=== PATIENT | female | born 1965 | race Caucasian/White ===

== ENCOUNTER 2018-01-15 06:10 | Day surgery (SDC) | payer OTHER ==
[2018-01-12 12:07] VITALS: BMI 23.6
[2018-01-15] MEDS ORDERED: EPINEPHrine 1:1,000 1 MG/1 ML - 30ML VIAL (INJECTION) ONE (07:11)
[2018-01-15] MEDS ORDERED: PROPOFOL 20 ML ONE ×3 (07:13→10:04)
[2018-01-15] MEDS ORDERED: SUCCINYLCHOLINE CHLORIDE 200 MG/10 ML VIAL ONE (07:13)
[2018-01-15] MEDS ORDERED: ceFAZolin SODIUM 1 GM VIAL ONE (07:15)
[2018-01-15] MEDS ORDERED: LIDOCAINE HCL/PF 2% SDV 5ML VIAL ONE (07:15)
[2018-01-15] MEDS ORDERED: ONDANSETRON 4 MG/2 ML VIAL ONE ×2 (07:15→10:24)
[2018-01-15] MEDS ORDERED: DEXAMETHASONE SOD PHOSPHATE 4 MG/1 ML VIAL ONE (07:15)
[2018-01-15] MEDS ORDERED: SODIUM CHLORIDE 0.9% P/F 10 ML VIAL IJ ONE (07:15)
[2018-01-15] MEDS ORDERED: DEXAMETHASONE SOD PHOSPHATE/PF 10 MG/ML SDV ONE (07:24)
[2018-01-15] MEDS ORDERED: BUPIVACAINE HCL/PF (5 MG/ML) 30 ML VIAL IJ ONE (07:25)
[2018-01-15] MEDS ORDERED: MIDAZOLAM HCL 2 MG/2 ML SINGLE DOSE VIAL ONE (07:25)
[2018-01-15] MEDS ORDERED: BUPIVACAINE LIPOSOME/PF (EXPAREL) 266 MG/20 ML VIAL ONE (07:27)
[2018-01-15] MEDS ORDERED: DESFLURANE GAS 240 ML BOTTLE IH ONE (09:06)
[2018-01-15] MEDS ORDERED: ePHEDrine SULFATE 50 MG/1 ML AMPULE ONE (09:20)
[2018-01-15] MEDS ORDERED: oxyCODONE HCL 5 MG TABLET PO PRN ×2 (10:44)
[2018-01-15] MEDS ORDERED: ONDANSETRON 4 MG/2 ML VIAL IVPUSH PRN (10:44)
[2018-01-15] MEDS ORDERED: LACTATED RINGERS SOLUTION 1,000 ML IV SCH (10:45)
--- NOTE | 2018-01-15 11:30 | OP ---
DATE OF OPERATION: 01/15/2018 PREOPERATIVE DIAGNOSIS: Left knee anterior cruciate ligament rupture. POSTOPERATIVE DIAGNOSIS: Left knee anterior cruciate ligament rupture. PROCEDURE: Left knee anterior cruciate ligament reconstruction utilizing hamstring autograft. SURGEON: Oliver Rivera MD ECONOMIC FORECASTER: DELPHINE Pelaez whose skillful assistance was necessary for the safe and timely performance of this procedure. Mr. Rodriguez was able to offer advice on limb positioning, retraction, drive the camera, help provide graft preparation, graft insertion, and insertion of orthopaedic fixation hardware. ANESTHESIA: Regional plus general. POSTOPERATIVE CONDITION: Stable. COMPLICATIONS: None. IMPLANTS: [employer] TightRope x2. INDICATIONS: This is a pleasant 52-year-old female who suffered an ACL rupture on her left knee. She initially tried nonoperative care but had persistent instability symptoms and elected for operative reconstruction. Treatment alternatives including continued nonoperative care and bracing were discussed. Operative risks were reviewed in detail including bleeding, infection, neurovascular injury, need for further surgery, postoperative pain and stiffness, postoperative instability, graft re-rupture. We discussed medical risks such as heart attack, stroke, DVT, PE, and . I reviewed the activity limitations and rehabilitation protocol afterwards. We discussed the use of antibiotic and DVT prophylaxis. I addressed all of the patient's and her 's questions and concerns. They voiced understanding and elected to proceed. DESCRIPTION OF PROCEDURE: The patient was brought to the operating room where general anesthesia was administered. The patient had been given a block in the preoperative holding area. The left lower extremity was prepped and draped in the usual sterile fashion. A preoperative dose of antibiotics was given, and the usual time-out procedure was performed. The patient was examined demonstrating full range of motion. No effusion. Positive Ulices. Positive pivot shift. Collaterals were stable. The PCL was stable. The decision was made to perform the hamstring harvest first. Incision was made over the pes tendons. This was carried down through skin through subcutaneous tissue. Blunt spreading was used to expose the sartorius fascia. The gracilis and semitendinosus were now palpated. An incision was made in sartorius fascia in line with the semitendinosus. The semitendinosus was now freed from the surrounding soft tissues. It was whipstitched. A soft tissue stripping device was then slid over retrieving out the semitendinosus. This was then prepared on the back table into an 8-mm x 70-mm graft. The arthroscope was then inserted concurrently. The portals were marked out, and an 11 blade was used to make an incision for a lateral portal. The arthroscope was then passed into the knee. Examination of the patellofemoral joint demonstrated no significant cartilage wear. Passing the arthroscope into the notch demonstrated empty lateral wall consistent with ACL rupture. The ACL remnant was seen to be scarred into the PCL. Medial portal was now established under spinal needle localization. Medial compartment was examined demonstrating some mild superficial cartilage wear. The medial meniscus was seen to be intact with no lesions. It was probed and found to be stable. The lateral compartment was inspected likewise. No meniscal rupture tears were seen. There was some slight fraying at the posterior root. The articular surface and lateral compartment were seen to be normal. The arthroscope was then passed into the notch. Here, utilizing a shaver as well as electrocautery, the ACL remnant was debrided. The femoral drill guide was now inserted through the lateral portal. It was inserted onto the anatomic origin of the ACL and the femur. A small incision was made laterally, and blunt spreading was used to insert the trocar. The trocar was now inserted down to the level of the bone. The ACL FlipCutter was now drilled into the knee. FlipCutter position was verified and was satisfactory. A 30-mm socket was now created, and a passing suture was placed. The drill guide was removed. Attention was then turned to the tibial side. Here, the tibial guide was inserted. The trocar was inserted through the previously made incision for the graft harvest. A FlipCutter was then drilled into the anatomic footprint of the ACL. FlipCutter placement was verified, and then a 40-mm socket was created down the side. Passing suture was placed. Both passing sutures were now retrieved out an enlarged lateral portal. The button was visualized directly to pass through the socket and seat firmly in the femoral cortex. The graft was then toggled in 20 mm. The tibial side sutures were then passed drawing the graft into the tibia. The button was loaded on. The TightRope was toggled. A Ulices was performed, and the knee was now stable. The sutures on the tibial side were now tied and then cut. The femoral sutures were removed as well. The deep tissues were approximated using 0 Vicryl. The subcutaneous tissue was approximated using 2-0 Vicryl. The skin was closed using 3-0 nylon. Sterile dressings were placed. The patient was placed into a straight leg brace. She was transferred to the recovery room in stable condition. Darcie HOROWITZ/[id number]
[2018-01-15] MEDS ORDERED: oxyCODONE HCL 5 MG TABLET ONE (11:50)
--- NOTE | 2018-01-15 12:03 | OP ---
Operative Note - Note: Operative Date: 01/15/18 Pre-Operative Diagnosis: L ACL rupture Operation: L ACL reconstruction. Hamstring autograft Post-Operative Diagnosis: Same as Pre-op Surgeon: Oliver Rivera Chief Green Officer: Graham Rodriguez Anesthesiologist/CAR DESIGNER: Graham Flood Anesthesia: Fractional Operative Report Dictated: Yes
[2018-01-15 12:17] VITALS: PULSE 71; TEMP 98
[2018-01-15 13:08] VITALS: BP 121/68
== END 2018-01-15 13:00 | disposition home or self-care (01) ==
LOC: FASU 06:10
PROVIDERS: ATTEND Orthopaedic Surgery Sports Medicine
PROC: 0MRP47Z Replacement of Left Knee Bursa and Ligament with Autologous Tissue Substitute, Percutaneous Endoscopic Approach (ICD-10-PCS; principal; 2018-01-15 08:33)
DX: S83.512A Sprain of anterior cruciate ligament of left knee, initial encounter (principal); X58.XXXA Exposure to other specified factors, initial encounter; Y93.9 Activity, unspecified; Y92.9 Unspecified place or not applicable
CPT/HCPCS: 94760